=== PATIENT | male | born 1965 | race Caucasian/White ===

== ENCOUNTER 2016-09-08 06:35 | Emergency (ER) | payer SELFPAY ==
[~2016-09-08] VITALS: Ht 177.8 cm; Wt 72.7 kg
[2016-09-08 06:38] VITALS: Ht 177.8 cm; Wt 72.7 kg
[2016-09-08] MEDS ORDERED: ONDANSETRON (ODT) 4 MG TAB ODT STA (07:09)
[2016-09-08] MEDS ORDERED: HYDROCODONE/APAP (5/325) TAB PO ONE (07:30)
--- NOTE | 2016-09-08 08:49 | RADRPT ---
PROCEDURE: Left knee x-ray CLINICAL INDICATION: knee pain TECHNIQUE: AP, lateral and oblique views of the left knee were obtained. COMPARISON: None FINDINGS: There are fixation plates and screws involving the proximal left tibia stabilizing a comminuted prox imal left tibial fracture. Possible nondisplaced fracture of the proximal left fibula. Recommend c omparison with previous studies. There are no other fractures or dislocation. No evidence joint ef fusion. IMPRESSION: 1. Fixation of proximal left tibial fracture as described above. 2. Possible nondisplaced fracture and proximal left fibula. Recommend comparison with old studies and follow-up. RPTAT:AAJJ Physician Catia Date Time Electronically viewed and signed by Physician Catia on 09/08/2016 08:49 /
[2016-09-08] MEDS ORDERED: IBUPROFEN 800 MG TAB PO ONE (09:00)
[2016-09-08] MEDS ORDERED: OXYC-279 PO (09:08)
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
== END 2016-09-08 09:20 | disposition home or self-care (01) ==
LOC: FTE 06:35
DX: S89.92XA Unspecified injury of left lower leg, initial encounter (principal); V00.811A Fall from moving wheelchair (powered), initial encounter; Y92.9 Unspecified place or not applicable; Z87.891 Personal history of nicotine dependence
CPT/HCPCS: 73562